=== PATIENT | female | born 2005 | race African-American/Black ===

== ENCOUNTER 2023-10-15 21:34 | Emergency (ER) | payer BC, SELFPAY ==
[2023-10-15 21:38] VITALS: BP 142/99; BMI 32.2
--- NOTE | 2023-10-15 23:19 | ED.GENMED ---
History of Present Illness
<PEDRO LUIS Wang - Last Filed: 10/16/23 00:10>
General
Chief Complaint: Anal/Rectal Problem
Source: patient
Exam Limitations: none
Time Seen by Provider: 10/15/23 22:43
Nursing documentation reviewed up to this point in time: agreed with
Travel History
Have you had any contact with someone who has COVID-19?: No
Do you have any symptoms of coronavirus? Fever > 100 degrees, chills, cough, shortness of breath, sore throat, loss of taste or smell, muscle aches, or headache?: No
History of Present Illness
History of Present Illness:
This is a 18 year old female with no significant past medical history who presents to the ER w/ c/o of painful abscess located at near the tailbone. She reports gradually increasing pain over the past week with today being the worst pain. She has
difficulty sitting due to the pain. She states she has tried sitz baths and heating pad without any relief. She has multiple previous pilonidal cyst in the past that have been incised and drained. She denies seeing colorectal surgeon. She denies any
fevers, chills, rigors, pus from abscess site.
Past History
<PEDRO LUIS Wang - Last Filed: 10/16/23 00:10>
Past History
ED Past Medical History: None
ED Past Surgical History: None
Social History
Tobacco: Non-smoker
Alcohol: None
Drug: None
Personal: Single
Living: with family
Employment: Employed
Review of Systems
<PEDRO LUIS Wang - Last Filed: 10/16/23 00:10>
Review of Systems
Allergies reviewed?: Yes
All Other Systems: Not applicable
Constitutional: Reports no symptoms
EENT: Reports no symptoms
Respiratory: Reports no symptoms
Cardiac: Reports no symptoms
ABD/GI: Reports no symptoms
: Reports no symptoms
Musculoskeletal: Reports no symptoms
Skin: Reports other (Abscess near tailbone)
Neurological: Reports no symptoms
Endocrine: Reports no symptoms
Hematologic/Lymphatic: Reports no symptoms
Psychiatric: Reports no symptoms
Phy Exam
<PEDRO LUIS Wang - Last Filed: 10/16/23 00:10>
General Physical Exam
General Presentation: well appearing and no apparent distress
General Skin: warm and dry
General Habitus: normal
General Mental: alert
General Hydration: appears well hydrated
ENT Exam
ENT Exam: EOMI, pharynx normal, neck supple and normocephalic
Eye Exam
Eye Exam: PERRL, cornea clear and conjunctiva normal
Cardiovascular Exam
Cardiovascular Exam: regular rate/rhythm, no edema, no murmur and normal peripheral pulses
Pulmonary Exam
Pulmonary Exam: lungs clear, no respiratory distress, no rales, no crackles, no rhonchi, no stridor, no wheezing and no cough
Gastrointestinal Exam
Gastrointestinal Exam: normal bowel sounds, non tender, soft, no organomegaly, no pulsatile mass and non distended
Neurological Exam
Neurological Exam: alert, oriented x3, no motor deficits and speech normal
Musculoskeletal Exam
Musculoskeletal Exam: full ROM and no edema
Skin Exam
Skin Exam: normal color, warm/dry, no rash, no petechia and other (Tender fluctuant mass in the sacrococcygeal region)
Psychiatric Exam
Psychiatric Exam: normal mood/affect
Course
<PEDRO LUIS Wang - Last Filed: 10/16/23 00:10>
Vital Signs
Initial and Last Documented VS:
Initial Vital Signs
Temp Pulse Resp BP Pulse Ox
98.7 F 126 20 142/99 99
10/15/23 21:38 10/15/23 21:38 10/15/23 21:38 10/15/23 21:38 10/15/23 21:38
Last Documented Vital Signs
Temp Pulse Resp BP Pulse Ox
98.7 F 82 16 140/90 98
10/15/23 21:38 10/16/23 00:00 10/16/23 00:00 10/16/23 00:00 10/16/23 00:00
<Phoenix Yan DO - Last Filed: 10/16/23 00:44>
Vital Signs
Initial and Last Documented VS:
Initial Vital Signs
Temp Pulse Resp BP Pulse Ox
98.7 F 126 20 142/99 99
10/15/23 21:38 10/15/23 21:38 10/15/23 21:38 10/15/23 21:38 10/15/23 21:38
Last Documented Vital Signs
Temp Pulse Resp BP Pulse Ox
98.7 F 82 16 140/90 98
10/15/23 21:38 10/16/23 00:00 10/16/23 00:00 10/16/23 00:00 10/16/23 00:00
Procedures
<Phoenix Yan DO - Last Filed: 10/16/23 00:44>
Incision/Drainage/Joint Aspiration
Left Buttock:
Anethesia: 1% Lidocaine
Preparation: cleaned with Hibiclens
Type of procedure: incise and drain
Nature of site: abscess
Description of abscess: greater than 3cm and complex
Loculations broken up: Yes
How much fluid was obtained?: large amount
Fluid description: purulent
Treatment: packed with gauze
Additional information:
Patient tolerated procedure well with no immediate adverse
<PEDRO LUIS Wang - Last Filed: 10/16/23 00:10>
MDM/Problems Addressed
Differential Diagnosis Includes:
Pilonidal abscess, hidradenitis suppurativa, inflammatory bowel disease, anal fisutla
Hidradenitis suppurativa ruled out because it is one abscess located on the sacrococcygeal region where as we would expect multiple lesions. It is less likely this is due to IBD due to lack of other symptoms
<PEDRO LUIS Wang - Last Filed: 10/16/23 00:10>
*Critical Care Note
Total Time (30-74mins, 75-104mins- exclusive of procedures): Not Applicable
ED Attending Note
<PEDRO LUIS Wang - Last Filed: 10/16/23 00:10>
-
Portions of this chart may have been created with voice recognition software.� Occasional wrong word or��sound alike� substitutions may have occurred due to the inherent limitations of voice recognition software.
<Phoenix Yan DO - Last Filed: 10/16/23 00:44>
ED Attending Note
Patient seen and examined by attending physician: Yes
I performed the substantive portion of visit, reviewed & personally made and approve the management plan that is documented in note by myself or MEG.: Yes
ED Attending Note:
Pleasant 18-year-old female with a pilonidal cyst. She has been having pain for the last 24 hours. She states that this is the third time she has had it drained. She has not seen a surgeon yet. The last drainage was about 4 months ago. Denies
fever, chills. Reports no chest pain or shortness of breath. Patient was seen in conjunction with the PA student. I have reviewed and agree with the history and treatment plan presented. On my independent physical exam, patient is awake, alert,
and oriented x3, moderate acute distress. On her left buttock there is a area of induration consistent with a pilonidal cyst. There is no evidence of cellulitis. No respiratory's.
Wound was thoroughly cleaned and anesthetized. When appropriate analgesia and anesthesia was established a #11 blade was used to create an incision. Under pressure, purulent discharge began flowing from the wound. Loculations were broken up with
a Celena forcep. The wound was then packed with quarter inch iodoform gauze. Patient tolerated procedure well with no immediate adverse will be started on doxycycline.
Discharge Plan
Departure
Patient Disposition: Home (Routine Discharge)
Date of Disposition: 10/16/23
Time of Disposition: 00:37
Patient with high blood pressure during this ER visit?: Yes
Condition: Good
Discharge Problem:
Pilonidal cyst
Instructions: Pilonidal Cyst (DC), How to Do a Sitz Bath, BLOOD PRESSURE
Prescriptions:
New
doxycycline hyclate 100 mg tablet
100 mg PO BID Qty: 20 0RF
No Action
ondansetron 4 mg tablet,disintegrating
4 mg PO QID PRN (Reason: nausea and vomiting) Qty: 20 0RF
doxycycline hyclate 100 mg tablet
100 mg PO BID 10 Days Qty: 20 0RF
Referrals:
Ezequiel Wall PA-C [Family Provider] -
Hal Dean MD [Active] - Next open appointment
Stand Alone Forms: Return to Work
Activity Restrictions/Additional Instructions:
Packing must be changed in 2 to 3 days
It was a pleasure meeting you and taking part in your care. We hope for your continued healing and wellness.
Please read discharge instructions in their entirety. However, they are for general education and may not describe your exact diagnosis at discharge. Information on your ER visit and medical conditions were discussed with you along with appropriate
follow up information...
If indicated, please take your medications as instructed and indicated on discharge paperwork.
Please schedule a follow up appointment as directed. Call to schedule an appointment
Please return to the emergency department with ANY change in, persisting, or worsening of symptoms. If any of your symptoms do not improve, or persist, or become more severe within 6-12 hours, please return to the emergency department for further
care.
Please return to the emergency department if you develop a headache, neck pain/stiffness, fever greater than 100.4F, chest pain, shortness of breath, persistent nausea, vomiting, slurred speech, difficulty walking, numbness/tingling, weakness, signs
of infection or any other symptoms that are worrisome to you.
If you have any questions or concerns please do not hesitate to call the Hospital at or E-mail me directly at [email or web address]
Interventions
Interventions:
*Risk Screen - Suicide Last Done: 10/15/23 21:38
*General Assessment Last Done: 10/15/23 22:05
*Neglect/Abuse Screening Last Done: 10/15/23 21:38
ED- Fall Risk Assessment Last Done: 10/15/23 22:05
*ED COVID-19 Vaccine History Last Done: 10/15/23 21:38
ED-Skin Assessment Last Done: 10/15/23 22:05
Discharge Date and Time
Print Language: SWEDISH
[2023-10-16] VITALS: BP 140/90
[2023-10-16] MEDS: VIBRAMYCIN 100 MG PO (00:53)
[2023-10-16 01:06] VITALS: BP 118/71
== END 2023-10-16 01:06 | disposition home or self-care (01) ==
LOC: EMR 21:34
PROVIDERS: EMERGENCY PHYSICIAN Student in an Organized Health Care Education/Training Program; FAMILY PHYSICIAN Physician Assistant
DX: L05.01 Pilonidal cyst with abscess (principal); R11.2 Nausea with vomiting, unspecified; Z88.1 Allergy status to other antibiotic agents
CPT/HCPCS: 99283; 10060

== ENCOUNTER 2023-12-23 06:02 | Day surgery (SDC) | payer BC, SELFPAY ==
[2023-12-23] VITALS (10 sets, daily range): BP systolic 102–122; BP diastolic 62–80; BMI 28.3
[2023-12-23] MEDS: TYLENOL 1000 MG PO (08:04)
[2023-12-23] MEDS: NORMOSOL-R 1000 IV (08:04)
[2023-12-23 08:17] LABS: HCG, Urine Qualitative Screen Negative
--- NOTE | 2023-12-23 10:03 | SUR.PHASEI ---
Patient tachycardiac on arrival to PACU. rate 133. Patient prone facing rt side. will monitor. Dressing dry. Ofe Jacobo RN BSN.
== END 2023-12-23 11:15 | disposition home or self-care (01) ==
LOC: SDS 06:02
PROVIDERS: ATTENDING PHYSICIAN Surgery
DX: L05.91 Pilonidal cyst without abscess (principal)
CPT/HCPCS: 11771; 14000; 88304; 81025

== ENCOUNTER 2023-12-31 12:15 | Emergency (ER) | payer BC, SELFPAY ==
[2023-12-31 12:17] VITALS: BP 126/86
--- NOTE | 2023-12-31 13:05 | ED.GENMED ---
History of Present Illness
General
Chief Complaint: Post Operative Problem(s)
Source: patient
Exam Limitations: none
Time Seen by Provider: 12/31/23 12:51
History of Present Illness
History of Present Illness:
Patient with a pilonidal cyst removal with adjacent flap done 8 days ago. Was seen 4 days ago and was doing okay. However patient notes some bloody discharge and mild foul-smelling drainage. Presents for evaluation. No systemic symptoms.
Past History
Past History
ED Past Medical History: None
ED Past Surgical History: Other (Pilonidal cyst removal)
Social History
Tobacco: Non-smoker
Alcohol: None
Drug: None
Personal: Single
Living: with family
Employment: Employed
Review of Systems
Review of Systems
All Other Systems: Not applicable
Constitutional: Denies fever or chills
Phy Exam
Physical Exam
Physical Exam:
General: Nontoxic appearing in no distress
Skin: Warm and dry, no rash
Neuro: Alert, nontoxic, grossly nonfocal
Psychiatric: Good eye contact and appropriate
Low back: Central lower midline incision covered with Steri-Strips. Inferior border of the Steri-Strips are loose. Mild blood-tinged drainage that is mildly foul-smelling. Superficial dehiscence. No surrounding cellulitis. No deep wound. No
induration.
Course
Orders/Labs/Results
Orders:
Orders
12/31/23 13:10
Amoxicillin 875 mg/Clav 125 mg [Augmentin 875 mg/125 mg] 1 tablet PO NOW STA
Vital Signs
Initial and Last Documented VS:
Initial Vital Signs
Temp Pulse Resp BP Pulse Ox
98.7 F 86 16 126/86 100
12/31/23 12:17 12/31/23 12:17 12/31/23 12:17 12/31/23 12:17 07/06/24 12:17
Last Documented Vital Signs
Temp Pulse Resp BP Pulse Ox
98.7 F 86 16 126/86 100
12/31/23 12:17 12/31/23 12:17 12/31/23 12:17 12/31/23 12:17 12/31/23 12:17
MDM/Problems Addressed
Differential Diagnosis Includes:
Superficial dehiscence with mild foul-smelling. Some of this may be a location with hygiene issues. However will cover with antibiotics to follow-up. No indication for any radiologic testing or acute surgical management. Discussed with surgery.
*Pulse Oximetry
Patient hypoxic: no
*Critical Care Note
Total Time (30-74mins, 75-104mins- exclusive of procedures): Not Applicable
Data Reviewed
Review of Other/Old Records Reveals: Operative Reports
ED Attending Note
-
Portions of this chart may have been created with voice recognition software.� Occasional wrong word or��sound alike� substitutions may have occurred due to the inherent limitations of voice recognition software.
Discharge Plan
Departure
Patient Disposition: Home (Routine Discharge)
Date of Disposition: 12/31/23
Time of Disposition: 13:07
Patient with high blood pressure during this ER visit?: Yes
Discharge Problem:
Superficial wound dehiscence, Recent pilonidal cyst extraction
Instructions: Wound Care (DC), BLOOD PRESSURE
Prescriptions:
New
amoxicillin-pot clavulanate 875-125 mg tablet
1 tab PO BID Qty: 14 0RF
No Action
desogestrel-ethinyl estradiol [Cyred EQ] 0.15-0.03 mg Tablet
1 tab PO DAILY
acetaminophen [acetaminophen] 325 mg tablet
650 mg PO Q4HPRN PRN (Reason: mild pain) Qty: 1 0RF
oxycodone 5 mg tablet
5 mg PO Q4HPRN PRN (Reason: breakthrough/severe pain) Qty: 10 0RF
ibuprofen 200 mg tablet
400 - 600 mg PO Q6HPRN PRN (Reason: moderate pain) Qty: 1 0RF
Activity Restrictions/Additional Instructions:
Call your surgeon Tuesday for close follow-up
Antibiotics as directed
Return sooner with increased drainage increased pain fever increased bleeding or any other concerning symptoms
Interventions
Interventions:
ED-Skin Assessment Last Done: 12/31/23 12:55
Discharge Date and Time
Print Language: AMHARIC
[2023-12-31] MEDS: AUGMENTIN 875 MG/125 MG 1 TABLET PO (13:32)
== END 2023-12-31 13:41 | disposition home or self-care (01) ==
LOC: EMR 12:15
PROVIDERS: EMERGENCY PHYSICIAN Emergency Medicine
DX: T81.30XA Disruption of wound, unspecified, initial encounter (principal); Y84.9 Medical procedure, unspecified as the cause of abnormal reaction of the patient, or of later complication, without mention of misadventure at the time of the procedure; Y82.9 Unspecified medical devices associated with adverse incidents; R03.0 Elevated blood-pressure reading, without diagnosis of hypertension
CPT/HCPCS: 99283

== ENCOUNTER 2024-11-04 20:49 | Emergency (ER) | payer BC, SELFPAY ==
[2024-11-04 20:51] VITALS: BP 130/92
[2024-11-04] MEDS: TYLENOL 1000 MG PO (21:00)
[2024-11-04 21:24] LABS: COVID-19 Antigen Negative (Negative)
[2024-11-04 23:08] VITALS: BMI 32.1
[2024-11-04 23:09] VITALS: BP 132/81
--- NOTE | 2024-11-04 23:31 | ED.GENMED ---
History of Present Illness
<PEDRO LUIS Phoenix - Last Filed: 11/05/24 00:20>
General
Chief Complaint: Cold/Flu/URI Symptoms
Source: patient
Time Seen by Provider: 11/04/24 23:15
History of Present Illness
History of Present Illness:
Pt is a 19 yo F with a PMH of seasonal allergies presenting with stuffiness, ELENA, fever x 3 days. She explains that she slept beneath two fans on night and woke Tuesday morning feeling congested, and took her allergy medication (pt can't
remember name of med, thinks it is an antihistamine)which was minimally helpful. On Tuesday, she noticed ELENA and fever with ongoing stuffiness, and took Tylenol which helped to control the fever, and Mucinex, which did not help. Today, her symptoms
continue. She had a large Mother's Day dinner and then vomited the food she ate. She also endorses a mild sore throat which she attributes to her congestion and the feeling that there is mucus stuck in her throat, a non-productive cough, and some
posterior neck pain which she feels is a continuation of her ELENA. She denies dyspnea, nausea, or diarrhea.
Past History
<PEDRO LUIS Phoenix - Last Filed: 11/05/24 00:20>
Past History
ED Past Medical History: None
ED Past Surgical History: Other (Pilonidal cyst removal)
Social History
Tobacco: Non-smoker
Alcohol: None
Drug: None
Personal: Single
Living: with family
Employment: Employed
Review of Systems
<PEDRO LUIS Phoenix - Last Filed: 11/05/24 00:20>
Review of Systems
All Other Systems: ROS reviewed and negative except as documented in HPI and ROS
Phy Exam
<PEDRO LUIS Phoenix - Last Filed: 11/05/24 00:20>
General Physical Exam
General Presentation: well appearing and no apparent distress
General age: appears stated age
General Skin: warm
General Habitus: normal
General Mental: alert
ENT Exam
ENT Exam: neck supple and other (Nasal turbinates swollen and erythematous B/L )
Additional ENT: No palpable lymphadenopathy, posterior pharynx non-erythematous
Cardiovascular Exam
Cardiovascular Exam: regular rate/rhythm
Heart Sounds: normal
Pulmonary Exam
Pulmonary Exam: lungs clear
Cough: non productive cough
Gastrointestinal Exam
Gastrointestinal Exam: normal bowel sounds and non tender
Skin Exam
Skin Exam: normal color
Sepsis
<PEDRO LUIS Phoenix - Last Filed: 11/05/24 00:20>
Sepsis Screening
Sepsis Assessment: Sepsis Ruled Out
Sepsis Screen
Sepsis Screen: Sepsis Ruled Out
Date: 11/05/24
Time: 00:20
<Ruby Neff DO - Last Filed: 11/05/24 01:18>
Sepsis Screen
Sepsis Screen: Sepsis Ruled Out
Date: 11/05/24
Time: 01:08
Course
<PEDRO LUIS Phoenix - Last Filed: 11/05/24 00:20>
Orders/Labs/Results
Orders:
Orders
11/04/24 20:58
COVID-19 Antigen Urgent
Source: Nasal Swab
Influenza A+B Rapid Molecular Urgent
RAFI Source: Nasal Swab
Specimen Description:
Acetaminophen [Tylenol] 1,000 mg .ROUTE .STK-MED ONE
11/04/24 21:00
Acetaminophen [Tylenol] 1,000 mg PO NOW STA
11/04/24 23:57
Ipratropium/Albuterol Sulfate [Duoneb] 3 ml INH R NOW STA
Prednisone [Deltasone] 50 mg PO NOW STA
Vital Signs
Initial and Last Documented VS:
Initial Vital Signs
Temp Pulse Resp BP Pulse Ox
100.7 F H 130 18 130/92 98
11/04/24 20:51 11/04/24 20:51 11/04/24 20:51 11/04/24 20:51 11/04/24 20:51
Last Documented Vital Signs
Temp Pulse Resp BP Pulse Ox
98.7 F 107 18 132/81 98
11/04/24 23:09 11/04/24 23:09 11/04/24 23:09 11/04/24 23:09 11/04/24 23:09
<Ruby Neff, DO - Last Filed: 11/05/24 01:18>
Orders/Labs/Results
Orders:
Orders
11/04/24 20:58
COVID-19 Antigen Urgent
Source: Nasal Swab
Influenza A+B Rapid Molecular Urgent
RAFI Source: Nasal Swab
Specimen Description:
Acetaminophen [Tylenol] 1,000 mg .ROUTE .STK-MED ONE
11/04/24 21:00
Acetaminophen [Tylenol] 1,000 mg PO NOW STA
11/04/24 23:57
Ipratropium/Albuterol Sulfate [Duoneb] 3 ml INH R NOW STA
Prednisone [Deltasone] 50 mg PO NOW STA
Vital Signs
Initial and Last Documented VS:
Initial Vital Signs
Temp Pulse Resp BP Pulse Ox
100.7 F H 130 18 130/92 98
11/04/24 20:51 11/04/24 20:51 11/04/24 20:51 11/04/24 20:51 11/04/24 20:51
Last Documented Vital Signs
Temp Pulse Resp BP Pulse Ox
98.7 F 107 18 132/81 98
11/04/24 23:09 11/04/24 23:09 11/04/24 23:09 11/04/24 23:09 11/04/24 23:09
<PEDRO LUIS hPoenix - Last Filed: 11/05/24 00:20>
*Critical Care Note
Total Time (30-74mins, 75-104mins- exclusive of procedures): Not Applicable
ED Attending Note
<PEDRO LUIS Phoenix - Last Filed: 11/05/24 00:20>
-
Portions of this chart may have been created with voice recognition software.� Occasional wrong word or��sound alike� substitutions may have occurred due to the inherent limitations of voice recognition software.
<Ruby Neff DO - Last Filed: 11/05/24 01:18>
ED Attending Note
Patient seen and examined by attending physician: Yes
I performed the substantive portion of visit, reviewed & personally made and approve the management plan that is documented in note by myself or MEG.: Yes
ED Attending Note:
This is a 19-year-old female with no significant past medical history save for seasonal allergies who presents with several day history of URI symptoms, nasal congestion, clear to pearly postnasal drip, cough, mild sore throat, generalized aches and
noted to have low-grade fever upon arrival to the ED. She admits to an episode of coughing with posttussive vomiting after dinner. Intermittent headache.
19-year-old female appears her stated age, bright and alert, pleasant, appears in no acute distress. Moderate nasal, stuffy voice is noted with intermittent brief dry cough. No respiratory distress.
HEENT: TMs are clear bilaterally. Moderately boggy pale blue turbinates with moderate clear rhinorrhea. Mild clear postnasal drip. Posterior pharynx without injection or edema nor exudate. Oral mucosa is moist.
Neck is supple without meningismus nor adenopathy.
Heart is regular rate and rhythm.
Lungs with scant scattered end expiratory wheezing. No respiratory distress. No rales or rhonchi.
Fever has dissipated after dose of Tylenol in triage.
COVID and influenza testing are negative.
Overall exam consistent with URI, sinusitis, acute in nature, which I suspect is viral in nature. Also accompanying allergic rhinitis.
Recommend supportive measures, will initiate a short course of prednisone, will add a short course of decongestant with antihistamine as well as Atrovent nasal spray.
Will trial DuoNeb nebulizer now and plan for albuterol inhaler.
Recommend out of work until fever free. Patient works at [employer] on [address] Will plan for out of work over the next 3 days with prompt follow-up with PCP. Patient will be referred to our family practice residency clinic.
Recommend Tylenol as needed for fever, staying well-hydrated on a daily basis.
Return precautions discussed.
Discharge Plan
Departure
Patient Disposition: Home (Routine Discharge)
Date of Disposition: 11/05/24
Time of Disposition: 01:08
Patient with high blood pressure during this ER visit?: No
Condition: Good
Covid-19: Negative COVID-19
Discharge Problem:
Acute upper respiratory infection
Instructions: Viral Upper Respiratory Infection, Adult (DC)
Prescriptions:
New
prednisone 50 mg tablet
50 mg PO DAILY Qty: 5 0RF
fexofenadine-pseudoephedrine [24HR Allergy-Congestion Relief] 180-240 mg tablet extended release 24 hr
1 tab PO DAILY Qty: 20 0RF
ipratropium bromide 42 mcg (0.06 %) spray,non-aerosol
2 spray intranasal QID PRN (Reason: nasal congestion) 4 Days Qty: 15 0RF
albuterol sulfate 90 mcg/actuation aerosol powdr breath activated
2 inh inhalation QIDPRN PRN (Reason: shortness of breath or wheezing) Qty: 1 0RF
No Action
desogestrel-ethinyl estradiol [Cyred EQ] 0.15-0.03 mg Tablet
1 tab PO DAILY
acetaminophen [acetaminophen] 325 mg tablet
650 mg PO Q4HPRN PRN (Reason: mild pain) Qty: 1 0RF
oxycodone 5 mg tablet
5 mg PO Q4HPRN PRN (Reason: breakthrough/severe pain) Qty: 10 0RF
ibuprofen 200 mg tablet
400 - 600 mg PO Q6HPRN PRN (Reason: moderate pain) Qty: 1 0RF
amoxicillin-pot clavulanate 875-125 mg tablet
1 tab PO BID Qty: 14 0RF
Referrals:
[facility] [Provider Group] - Follow up in 2-3 days
UNKNOWN - PT DOES,NOT KNOW [Family Provider] -
Stand Alone Forms: Return to Work
Interventions
Interventions:
*Risk Screen - Suicide Last Done: 11/04/24 20:51
*General Assessment Last Done: 11/04/24 20:51
*Neglect/Abuse Screening Last Done: 11/04/24 20:51
*ED- Fall Risk Assessment Last Done: 11/04/24 23:09
*ED COVID-19 Vaccine History Last Done: 11/04/24 23:09
ED- Pulmonary Assessment Last Done: 11/04/24 23:15
Discharge Date and Time
Print Language: ALBANIAN
[2024-11-05] MEDS: DELTASONE 50 MG PO (00:28)
[2024-11-05] MEDS: DUONEB 3 ML INH (00:29)
== END 2024-11-05 01:35 | disposition home or self-care (01) ==
LOC: EMR 20:49
PROVIDERS: Student in an Organized Health Care Education/Training Program; EMERGENCY PHYSICIAN Emergency Medicine
DX: J06.9 Acute upper respiratory infection, unspecified (principal); R51.9 Headache, unspecified; R11.10 Vomiting, unspecified; M54.2 Cervicalgia; Z11.52 Encounter for screening for COVID-19; Z88.1 Allergy status to other antibiotic agents; Z91.040 Latex allergy status; Z91.048 Other nonmedicinal substance allergy status
CPT/HCPCS: 99283; 94640; 87502; 87811

== ENCOUNTER 2025-01-16 19:16 | Emergency (ER) | payer BC, SELFPAY ==
[2025-01-16 19:19] VITALS: BP 129/83
--- NOTE | 2025-01-16 21:22 | ED.MUSCINJ ---
HPI-Injury
General
Chief Complaint: Musculo-Skeletal Complaint
Source: patient
Exam Limitations: none
Time Seen by Provider: 01/16/25 21:22
Nursing documentation reviewed up to this point in time: agreed with
History of Present Illness-Injury
Initial Injury comments:
19-year-old female presents with pain in the left great toe after dropping her 50 pound suitcase on it 2 days ago.
Past History
Past History
ED Past Medical History: None
ED Past Surgical History: Other (Pilonidal cyst removal)
Social History
Tobacco: Non-smoker
Alcohol: None
Drug: None
Personal: Single
Living: with family
Employment: Employed
Review of Systems
Review of Systems
Allergies reviewed?: Yes
All Other Systems: ROS reviewed and negative except as documented in HPI and ROS
Musculoskeletal: Reports other (Pain left toe)
Skin: Reports no symptoms
Phy Exam
Physical Exam
Physical Exam:
PHYSICAL EXAMINATION:
General: no apparent distress, not acutely ill
Neuro: alert and oriented.
Psychiatric: well kept. interactive and cooperative
Musculoskeletal: Moves with ease. Tender to palpate base of left great toe, no notable swelling, distal neurovascular intact
Skin: Warm, pink. Normal
Injury Course
Orders/Labs/Results
Orders:
Orders
01/16/25 19:22
Toes 2 Views, Left CR [CR Toe(s) Min 2 Vw Left] Urgent
Comment:
Reason For Exam: pain
Indicate Which Toe:: Great
MDM/Problems Addressed
MDM/Problems Addressed:
19-year-old female presents with pain in the left great toe after dropping her 50 pound suitcase on it 2 days ago.
X-ray of left great toe read by this examiner, no fracture or other abnormality
*Pulse Oximetry
SaO2: 100
Oxygen Mode of Delivery: Room air
Patient hypoxic: not evaluated
*Critical Care Note
Total Time (30-74mins, 75-104mins- exclusive of procedures): Not Applicable
ED Attending Note
-
Portions of this chart may have been created with voice recognition software.� Occasional wrong word or��sound alike� substitutions may have occurred due to the inherent limitations of voice recognition software.
Discharge Plan
Departure
Patient Disposition: Home (Routine Discharge)
Date of Disposition: 01/16/25
Time of Disposition: 21:24
Patient with high blood pressure during this ER visit?: No
Condition: Good
Discharge Problem:
Contusion of great toe, left
Instructions: Contusion (DC)
Prescriptions:
No Action
desogestrel-ethinyl estradiol [Cyred EQ] 0.15-0.03 mg Tablet
1 tab PO DAILY
acetaminophen [acetaminophen] 325 mg tablet
650 mg PO Q4HPRN PRN (Reason: mild pain) Qty: 1 0RF
oxycodone 5 mg tablet
5 mg PO Q4HPRN PRN (Reason: breakthrough/severe pain) Qty: 10 0RF
ibuprofen 200 mg tablet
400 - 600 mg PO Q6HPRN PRN (Reason: moderate pain) Qty: 1 0RF
amoxicillin-pot clavulanate 875-125 mg tablet
1 tab PO BID Qty: 14 0RF
prednisone 50 mg tablet
50 mg PO DAILY Qty: 5 0RF
fexofenadine-pseudoephedrine [24HR Allergy-Congestion Relief] 180-240 mg tablet extended release 24 hr
1 tab PO DAILY Qty: 20 0RF
ipratropium bromide 42 mcg (0.06 %) spray,non-aerosol
2 spray intranasal QID PRN (Reason: nasal congestion) 4 Days Qty: 15 0RF
albuterol sulfate 90 mcg/actuation aerosol powdr breath activated
2 inh inhalation QIDPRN PRN (Reason: shortness of breath or wheezing) Qty: 1 0RF
Referrals:
NONE,* [Family Provider, Internal Medicine]
Activity Restrictions/Additional Instructions:
As we discussed, your x-ray shows no fracture. Tylenol or ibuprofen as needed for pain.
Interventions
Interventions:
*Risk Screen - Suicide Last Done: 01/16/25 19:19
*Neglect/Abuse Screening Last Done: 01/16/25 19:19
*Nursing Disposition Last Done: 01/16/25 21:33
ED-Musculoskeletal Assessment Last Done: 01/16/25 20:30
Discharge Date and Time
Discharge Date/Time: 01/16/25 21:33
Print Language: ESTONIAN
[2025-01-16 21:32] VITALS: BP 117/79
== END 2025-01-16 21:33 | disposition home or self-care (01) ==
LOC: EMR 19:16
PROVIDERS: EMERGENCY PHYSICIAN Emergency Medicine
DX: S90.112A Contusion of left great toe without damage to nail, initial encounter (principal); W20.8XXA Other cause of strike by thrown, projected or falling object, initial encounter; Z88.2 Allergy status to sulfonamides; Z88.1 Allergy status to other antibiotic agents; Z91.040 Latex allergy status
CPT/HCPCS: 99283; 73660